=== PATIENT | female | born 1950 | race Caucasian/White ===

== ENCOUNTER → 2018-10-22 | Outpatient (CLI) | payer MEDICARE ==
[~2018-10-22] MED LIST: ATOR10TA9 PO; MAGN400T7 PO; UBID100C41 PO
[2018-10-22 14:40] LABS: BASOPHILS # (AUTO) 0.04 x10^3/uL (0-0.1); BASOPHILS % (AUTO) 1 % (0-1); EOSINOPHILS # (AUTO) 0.11 x10^3/uL (0-0.4); EOSINOPHILS % (AUTO) 2 % (1-7); LYMPHOCYTES # (AUTO) 1.54 x10^3/uL (1-3.4); LYMPHOCYTES % (AUTO) 33 % (22-44); MD NO; MEAN CORPUSCULAR HEMOGLOBIN 29.2 pg (27.0-34.8); MEAN CORPUSCULAR HGB CONC 32.9 g/dL (32.4-35.8); MEAN CORPUSCULAR VOLUME 88.7 fL (80-100); MEAN PLATELET VOLUME 10.1 fL (7.4-10.4); MONOCYTES # (AUTO) 0.35 x10^3/uL (0.2-0.8); MONOCYTES % (AUTO) 8 % (2-9); NEUTROPHILS # (AUTO) 2.63 x10^3/uL (1.8-6.8); NEUTROPHILS % (AUTO) 56 % (42-75); PLATELET COUNT 199 x10^3/uL (130-400); RED BLOOD COUNT 4.85 x10^6/uL (3.82-5.3); RED CELL DISTRIBUTION WIDTH 14.1 % (9.6-15.2)
[2018-10-22 14:49] LABS: INTERNATIONAL NORMALIZED RATIO 1.02 (0.93-1.1); PROTHROMBIN TIME 10.7 Seconds (9.6-11.5)
[2018-10-22 14:51] LABS: ALBUMIN 4.2 g/dL (3.4-5.0); ANION GAP 6 mmol/L (5-15); CALCIUM 9.3 mg/dL (8.5-10.1); CHLORIDE 107 mmol/L (98-107)
[2018-10-22 14:55] LABS: ALANINE AMINOTRANSFERASE 26 U/L (12-78); ALKALINE PHOSPHATASE 105 U/L (45-117); BILIRUBIN,TOTAL 0.4 mg/dL (0.2-1.0); CREATININE 0.87 mg/dL (0.55-1.02); TOTAL PROTEIN 7.6 g/dL (6.4-8.2)
== END | disposition home or self-care (01) ==
LOC: STAR 13:39
PROVIDERS: ATTEND Orthopaedic Surgery
DX: Z01.818 Encounter for other preprocedural examination (principal); M16.0 Bilateral primary osteoarthritis of hip
CPT/HCPCS: 36415; 80053; 83036; 85025; 85610; 85730; 87081; 93005

== ENCOUNTER 2018-10-26 06:48 | Inpatient (IN) | payer MEDICARE ==
[~2018-10-26] VITALS: Ht 162.6 cm; Wt 100.5 kg
[~2018-10-26 06:48] MED LIST changes: +EPINEPHRINE 1 MG/ML, 1ML ONE; +KETOROLAC 60 MG/2 ML ONE; +ROPIvacaine/PF 0.5%, 30 ML ONE; +SODIUM CHLORIDE 0.9% 50 ML ONE; +TRANEXAMIC ACID 100 MG/ML, 10ML ONE; +VANCOMYCIN 1,000 MG ONE
[2018-10-26] MEDS ORDERED: GABAPENTIN 300 MG CAPSULE PO ONE (07:30)
[2018-10-26] MEDS ORDERED: ACETAMINOPHEN 500 MG TABLET PO ONE (07:30)
[2018-10-26 07:36] VITALS: BP 146/83
[2018-10-26] MEDS ORDERED: LACTATED RINGERS 1,000 ML IV SCH (07:39)
[2018-10-26] MEDS ORDERED: LIDOCAINE-MPF 1%, 2ML ONE (07:45)
[2018-10-26] MEDS ORDERED: MIDAZOLAM 1 MG/ML, 2ML ONE (09:17)
[2018-10-26] MEDS ORDERED: FENTANYL PF 250 MCG/5ML ONE (09:17)
[2018-10-26] MEDS ORDERED: CEFAZOLIN 1,000 MG ONE (09:20)
[2018-10-26] MEDS ORDERED: ROCURONIUM 10 MG/ML,10ML ONE (09:20)
[2018-10-26] MEDS ORDERED: PROPOFOL 10 MG/ML, 20ML ONE (09:20)
[2018-10-26] MEDS ORDERED: ONDANSETRON 2MG/ML, 2ML ONE (09:20)
[2018-10-26] MEDS ORDERED: DEXAMETHASONE 4 MG/ML, 1ML ONE (09:20)
[2018-10-26] MEDS ORDERED: ALBUTEROL SULFATE 2.5 MG/3 ML NPPB PRN (10:00)
[2018-10-26] MEDS ORDERED: LABETALOL 5MG/ML, 20ML IV PRN (10:00)
[2018-10-26] MEDS ORDERED: OXYcodone 5 MG/5 ML ORAL.SOL UDC PO PRN (10:00)
[2018-10-26] MEDS ORDERED: MEPERIDINE/PF 25MG/0.5ML IVPush PRN (10:00)
[2018-10-26] MEDS ORDERED: hydrALAzine 20 MG/ML, 1ML IV PRN (10:00)
[2018-10-26] MEDS ORDERED: DIAZEPAM 5 MG/ML, 2ML IVPush PRN (10:00)
[2018-10-26] MEDS ORDERED: PROMETHAZINE 25 MG/ML, 1ML IV PRN (10:00)
[2018-10-26] MEDS ORDERED: MAGNESIUM HYDROXIDE 8%, 30ML UDC PO PRN (10:30)
[2018-10-26] MEDS ORDERED: ACETAMINOPHEN 650 MG/20.3 ML UDC PO PRN (10:30)
[2018-10-26] MEDS ORDERED: ONDANSETRON 2MG/ML, 2ML IV PRN (10:30)
[2018-10-26] MEDS ORDERED: DIPHENHYDRAMINE 50 MG CAPSULE PO PRN (10:30)
[2018-10-26] MEDS ORDERED: OXYcodone IR 5MG TABLET PO PRN (10:30)
[2018-10-26] MEDS ORDERED: BISACODYL 10 MG SUPP PR PRN (10:30)
[2018-10-26] MEDS ORDERED: SCOPOLAMINE PATCH, 1.5MG PATCH.TD72 TD ONE (10:30)
[2018-10-26] MEDS ORDERED: SENNA/DOCUSATE TABLET PO PRN (10:30)
[2018-10-26] MEDS ORDERED: EPHEDRINE 50 MG/ML, 1ML ONE (10:48)
[2018-10-26] MEDS ORDERED: FENTANYL PF 100 MCG/2ML ONE (10:55)
[2018-10-26] MEDS ORDERED: OXYcodone 5 MG/5 ML ORAL.SOL UDC ONE (10:55)
[2018-10-26] MEDS ORDERED: EPHEDRINE 50 MG/ML, 1ML IVPush PRN (11:00)
[2018-10-26] MEDS: FENTANYL PF 100 MCG/2ML IV PRN ×4 (11:15→11:35)
[2018-10-26] MEDS ORDERED: HYDROmorphone 1 MG/ML, 1ML VIAL ONE (11:41)
[2018-10-26] MEDS: HYDROmorphone 2 MG/ML, 1ML IVPush PRN ×2 (11:45→11:50)
[2018-10-26] MEDS ORDERED: HYDROcodone/APAP 5/325 TABLET PO PRN (13:30)
[2018-10-26] MEDS ORDERED: ONDANSETRON 4 MG TABLET PO PRN (13:30)
[2018-10-26] MEDS: NS + 20MEQ KCL 1,000 ML IV SCH (13:52)
[2018-10-26 14:00] VITALS: BP 115/72
[2018-10-26] MEDS: ASPIRIN 81 MG TABLET EC PO SCH (17:42)
[2018-10-26] MEDS: CEFAZOLIN 2,000 MG in SODIUM CHLORIDE 0.9% 50 ML IVPB SCH (17:42)
[2018-10-26] MEDS ORDERED: ZOLPIDEM 5MG TABLET PO PRN (21:00)
[2018-10-26] MEDS ORDERED: ATORVASTATIN 10 MG TABLET PO SCH (21:00)
[2018-10-26 21:24] VITALS: BP 100/59
[2018-10-26] MEDS: DOCUSATE 100 MG CAPSULE PO SCH (22:09)
[2018-10-27] MEDS: NS + 20MEQ KCL 1,000 ML IV SCH (01:30)
[2018-10-27] MEDS: CEFAZOLIN 2,000 MG in SODIUM CHLORIDE 0.9% 50 ML IVPB SCH (01:46)
[2018-10-27 02:48] VITALS: BP 106/65
[2018-10-27 04:56] VITALS: BP 108/51
[2018-10-27] MEDS: ASPIRIN 81 MG TABLET EC PO SCH (06:00)
[2018-10-27] MEDS ORDERED: DEXAMETHASONE 4 MG/ML, 1ML IVPush SCH (06:00)
[2018-10-27 08:38] VITALS: BP 107/55
[2018-10-27] MEDS: DOCUSATE 100 MG CAPSULE PO SCH (09:08)
[2018-10-27] MEDS ORDERED: OXYC5CAP2 PO (10:16)
[2018-10-27] MEDS ORDERED: MELO7.5T31 PO (10:17)
[2018-10-27] MEDS ORDERED: TRAM50TA2 PO (10:17)
== END 2018-10-27 11:40 | disposition home or self-care (01) | DRG 470 ==
LOC: ORIP 06:48 → 4NOR 12:35 → DCLOUNGE 10-27 11:35
PROVIDERS: ADMIT Orthopaedic Surgery; ATTEND Orthopaedic Surgery
PROC: 0SRB06A Replacement of Left Hip Joint with Oxidized Zirconium on Polyethylene Synthetic Substitute, Uncemented, Open Approach (ICD-10-PCS; principal; 2018-10-26 09:30)
DX: M16.12 Unilateral primary osteoarthritis, left hip (principal); E66.9 Obesity, unspecified; Z68.38 Body mass index [BMI] 38.0-38.9, adult; Z82.61 Family history of arthritis; Z82.49 Family history of ischemic heart disease and other diseases of the circulatory system
CPT/HCPCS: 36415; 72170; 76000; 85014; 85018; C1713; G0378; J0171; J0690; J1100; J1170; J1885; J2250; J2405; J2704; J2795; J3010; J3370; J3480; Q0162; C1776; J7120